=== PATIENT | male | born 1955 ===

== ENCOUNTER 2025-02-04 17:57 | Inpatient (IN) | payer MEDICARE, MEDICAID, SELFPAY ==
[2025-02-04 18:25] VITALS: BP 122/75; PULSE 42; RESP 18; TEMP 36.9; O2SAT 96
[2025-02-04 18:39] VITALS: BMI 31.2
--- NOTE | 2025-02-04 19:19 | PC.ADMIT ---
Ronaldo Arnold was admitted to on a CV for treatment of Bipolar Disorder and OCD from [facility]. He reports that prior to coming to the hospital, he was having lack of care for himself and his two birds at home due to his neuropathy. He reports he spends a large amount of time laying in bed from the pain and fear of falling, and it has taken an emotional toll on him. He reports having increased depression and anxiety, which is not a new symptom for him, to the point where he felt like he wanted to take his life. Upon admission, he reports feeling safe and hopeful that he is going to be helped and feel better. His thought process is clear and linear, he makes appropriate eye contact and is A&O x 3. His mood is depressed and his affect is congruent. He denies SI/HI/AVH, he reports feeling comfortable coming to staff if these occur. He reports having a history of asthma, type 2 diabetes that is under good control, and obstructive sleep apnea that he uses a CPAP for. He denies any disturbance to sleep or appetite and denies recent weight loss. He denies substance use and tox screen was negative. He reports pain due to neuropathy but otherwise no other pain. He reports having a back surgery in Sep. He reports his goal of admission to feel better and less depression. He was placed on 15 minute checks for safety.
[2025-02-04 19:34] VITALS: BP 145/70; PULSE 59; RESP 18; TEMP 36.4; O2SAT 99
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
[2025-02-04] MEDS: Divalproex Sodium 250 MG TABLET.DR PO (20:11)
[2025-02-04] MEDS: hydrOXYzine HCL 25 MG TABLET PO (20:11)
[2025-02-04] MEDS: Prazosin HCL 1 MG CAPSULE PO (20:11)
[2025-02-04] MEDS: Meclizine HCl 12.5 MG TABLET PO (20:23)
[2025-02-04] MEDS: Acetaminophen 325 MG TABLET 650 MG PO (23:40)
[2025-02-04] MEDS: traZODone HCL 50 MG TABLET PO (23:40)
[2025-02-05 07:53] VITALS: BP 123/61; PULSE 40; RESP 14; TEMP 36.6; O2SAT 100
[2025-02-05 08:41] LABS: Estimated Average Glucose 111 mg/dL; Hemoglobin A1C 140.9174 umol/L; Hemoglobin A1c % 5.5 % (<6.0); Total Hemoglobin (HGBA1C) 3812.5434 umol/L
[2025-02-05] MEDS: Ezetimibe 10 MG TABLET PO (08:44)
[2025-02-05 08:53] LABS: Cholesterol 171 mg/dL (<200); HDL Cholesterol 39 mg/dL (>40); LDL Cholesterol Calculated 103 mg/dL (<100); Triglycerides 149 mg/dL (<150)
[2025-02-05 09:11] LABS: Free T4 (Free Thyroxine) 0.96 ng/dL (0.71-1.85); Thyroid Stimulating Hormone 1.34 uIU/mL (0.32-4.0)
[2025-02-05] MEDS: Acetaminophen 325 MG TABLET 650 MG PO ×2 (09:19→22:25)
[2025-02-05 09:20] LABS: Folate 13.6 ng/mL (> or = 4.0); Vitamin B12 350 pg/mL (200-900)
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
[2025-02-05] MEDS: Meclizine HCl 12.5 MG TABLET PO ×2 (11:00→14:25)
[2025-02-05] MEDS: Gabapentin 300 MG CAPSULE PO ×2 (14:26→20:42)
[2025-02-05 20:00] VITALS: BP 136/62; PULSE 44; RESP 16; TEMP 36.4; O2SAT 99
[2025-02-05] MEDS: hydrOXYzine HCL 25 MG TABLET PO (20:42)
[2025-02-05] MEDS: Divalproex Sodium 250 MG TABLET.DR PO (20:42)
[2025-02-05] MEDS: traZODone HCL 50 MG TABLET PO ×2 (20:42→22:25)
[2025-02-05] MEDS: Prazosin HCL 1 MG CAPSULE 2 MG PO (20:42)
[2025-02-06] MEDS: Acetaminophen 325 MG TABLET 650 MG PO (03:51)
[2025-02-06 07:33] VITALS: BP 123/60; PULSE 38; RESP 14; TEMP 36.4; O2SAT 95
[2025-02-06 08:51] VITALS: PULSE 44
[2025-02-06] MEDS: Gabapentin 300 MG CAPSULE PO (08:52)
[2025-02-06] MEDS: Ezetimibe 10 MG TABLET PO (08:52)
[2025-02-06] MEDS: buPROPion HCl XL 150 MG TAB.ER.24H PO (08:52)
[2025-02-06] MEDS: Gabapentin 300 MG CAPSULE 600 MG PO ×2 (15:24→21:10)
[2025-02-06] MEDS: Ibuprofen 600 MG TABLET PO ×2 (15:30→21:32)
--- NOTE | 2025-02-06 19:51 | P.PNPSI_ITS ---
Subjective Subjective Date of Service: 02/06/25 Reason For Visit: F31.9, F42.2 Interim History: reports he is feeling improved, pacing the ac. agreeable to increase glenn and prazosin for neuropathic pain and nightmares/insomnia and to DC trazodone out of concern for exacerbation of nightmares. will try remeron PRN. per staff dep/anx so-so. slept 7 hours. taking meds. bored. reading bible. Mental Status Exam Mental Status Exam Narrative: adequately dressed and groomed. cooperative. no PMA/PMR. speech nml rate, amount, loudness, tone, latency. thoughts linear and logical. affect full range, normo-intense, non-labile. mood improved. no SI/SIBI/HI/AVH expressed. Diagnostics Vital Signs (24Hr): Vital Signs - 24 hr 02/05/25 20:00 02/06/25 07:33 02/06/25 08:51 Temperature 97.5 F 97.5 F Pulse Rate 44 L 38 L 44 L Respiratory Rate 16 14 Blood Pressure 136/62 123/60 Pulse Oximetry 99 95 Oxygen Delivery Method Room Air BMI result Body Mass Index 31.2 Labs Labs: Laboratory Results - last 48 hr 02/05/25 08:10 Estimat Average Glucose 111 Hemoglobin A1c % 5.5 Triglycerides 149 Cholesterol 171 LDL Cholesterol, Calc 103 H HDL Cholesterol 39 L Vitamin B12 350 Folate 13.6 TSH 1.34 Free T4 0.96 Medications Medications Current Medications Al Hydroxide/Mg Hydroxide (Magnesium Hydrox/Alum Hydrox 30 Ml Oral.Susp) 30 ml PO Q6H PRN PRN Reason: Heartburn/Nausea Bupropion HCl (Bupropion Hcl Xl 150 Mg Tab.Er.24h) 150 mg PO DAILY [facility] Last Admin: 02/06/25 08:52 Dose: 150 mg Divalproex Sodium (Divalproex Sodium 250 Mg Tablet.) 250 mg PO BEDTIME [facility] Last Admin: 02/05/25 20:42 Dose: 250 mg Ezetimibe (Ezetimibe 10 Mg Tablet) 10 mg PO DAILY [facility] Last Admin: 02/06/25 08:52 Dose: 10 mg Gabapentin (Gabapentin 300 Mg Capsule) 600 mg PO TID [facility] Last Admin: 02/06/25 15:24 Dose: 600 mg Hydroxyzine HCl (Hydroxyzine Hcl 25 Mg Tablet) 25 mg PO Q6H PRN PRN Reason: mild anxiety Last Admin: 02/05/25 20:42 Dose: 25 mg Ibuprofen (Ibuprofen 600 Mg Tablet) 600 mg PO Q6H PRN PRN Reason: pain (pain scale 1-10) Last Admin: 02/06/25 15:30 Dose: 600 mg Magnesium Hydroxide (Milk Of Magnesia 30 Ml Oral.Susp) 30 ml PO DAILY PRN PRN Reason: Constipation Meclizine HCl (Meclizine Hcl 12.5 Mg Tablet) 12.5 mg PO TID PRN PRN Reason: motion sickness Last Admin: 02/05/25 14:25 Dose: 12.5 mg Mirtazapine (Mirtazapine 15 Mg Tablet) 15 mg PO BEDTIME PRN PRN Reason: insomnia Nicotine Polacrilex (Nicotine Polacrilex 2 Mg Gum) 4 mg BUCCAL Q2H PRN PRN Reason: Nicotine Cravings Prazosin HCl (Prazosin Hcl 1 Mg Capsule) 3 mg PO BEDTIME JP; Protocol Allergies Allergies Allergy/AdvReac Type Severity Reaction Status Date / Time amoxicillin Allergy Unknown Verified 02/04/25 18:03 latex Allergy Unknown Verified 02/04/25 18:03 mold Allergy Unknown Verified 02/04/25 18:03 sulfamethoxazole Allergy Unknown Verified 02/04/25 18:03 [From Bactrim] trimethoprim [From Bactrim] Allergy Unknown Verified 02/04/25 18:03 Assessment & Plan Assessment & Plan (1) Chronic post-traumatic stress disorder (PTSD): Status: Acute Code(s): F43.12 - Post-traumatic stress disorder, chronic (2) Bipolar disorder: Status: Acute Code(s): F31.9 - Bipolar disorder, unspecified (3) Mild cognitive impairment: Status: Acute Code(s): G31.84 - Mild cognitive impairment of uncertain or unknown etiology (4) Diabetes mellitus: Status: Acute Code(s): E11.9 - Type 2 diabetes mellitus without complications Plan 1) nightmares/insomnia - increase prazosin to 2 mg QHS as of 02/05, 3 mg as of 02/06. DC trazodone for risk of exacerbation of nightmares, trial of remeron instead. 2) neuropathy - increase gabapentin to 300 TID as of 02/05, 600 TID as of 02/06. 3) depression - add wellbutrin XL 150 mg daily as of 02/06. 4) mood stabilization - continue VPA 250 mg at HS, increase later in hospitalization or outpt. otherwise continue outpt regimen. dispo planning. Reason for continued inpatient stay Substantial Risk for: harm to self, inability to function and rapid decom pensation Time Spent With Patient Time: Total time managing care of this patient today ____ minutes.
[2025-02-06 20:00] VITALS: BP 123/58; PULSE 41; RESP 15; TEMP 36.4; O2SAT 100
[2025-02-06] MEDS: Prazosin HCL 1 MG CAPSULE 3 MG PO (21:09)
[2025-02-06] MEDS: Divalproex Sodium 250 MG TABLET.DR PO (21:09)
[2025-02-06] MEDS: Mirtazapine 15 MG TABLET PO (21:32)
[2025-02-07 07:40] VITALS: BP 122/64; PULSE 40; TEMP 36.9; O2SAT 96
[2025-02-07] MEDS: Gabapentin 300 MG CAPSULE 600 MG PO ×3 (08:57→21:47)
[2025-02-07] MEDS: buPROPion HCl XL 150 MG TAB.ER.24H PO (08:57)
[2025-02-07] MEDS: Ezetimibe 10 MG TABLET PO (08:57)
--- NOTE | 2025-02-07 12:14 | HO.PSYCHPN ---
Subjective Subjective Date of Service: 02/07/25 Reason For Visit: F31.9, F42.2 Interim History: calm, cooperative, pleasant. feeling much better mood-green, slept VERY well last night and happy about it. vivid dreams, but no nightmares. agreeable to continue current mgmt and decide tomorrow whether to increase wellbutrin to 300 on or not. per staff, dep 5 anx 4. visible. taking meds. broad affect. slept 6 hours. Mental Status Exam Mental Status Exam Narrative: adequately dressed and groomed. cooperative. no PMA/PMR. speech nml rate, amount, loudness, tone, latency. thoughts linear and logical. affect full range, normo-intense, non-labile. mood improved. no SI/SIBI/HI/AVH expressed. Diagnostics Vital Signs (24Hr): Vital Signs - 24 hr 02/06/25 20:00 02/07/25 07:40 Temperature 97.5 F 98.5 F Pulse Rate 41 L 40 L Respiratory Rate 15 Blood Pressure 123/58 L 122/64 Pulse Oximetry 100 96 Oxygen Delivery Method Room Air Room Air BMI result Body Mass Index 31.2 Medications Medications Current Medications Al Hydroxide/Mg Hydroxide (Magnesium Hydrox/Alum Hydrox 30 Ml Oral.Susp) 30 ml PO Q6H PRN PRN Reason: Heartburn/Nausea Bupropion HCl (Bupropion Hcl Xl 150 Mg Tab.Er.24h) 150 mg PO DAILY REPLACED BY [facility] Last Admin: 02/07/25 08:57 Dose: 150 mg Divalproex Sodium (Divalproex Sodium 250 Mg Tablet.) 250 mg PO BEDTIME REPLACED BY [facility] Last Admin: 02/06/25 21:09 Dose: 250 mg Ezetimibe (Ezetimibe 10 Mg Tablet) 10 mg PO DAILY REPLACED BY [facility] Last Admin: 02/07/25 08:57 Dose: 10 mg Gabapentin (Gabapentin 300 Mg Capsule) 600 mg PO TID REPLACED BY [facility] Last Admin: 02/07/25 08:57 Dose: 600 mg Hydroxyzine HCl (Hydroxyzine Hcl 25 Mg Tablet) 25 mg PO Q6H PRN PRN Reason: mild anxiety Last Admin: 02/05/25 20:42 Dose: 25 mg Ibuprofen (Ibuprofen 600 Mg Tablet) 600 mg PO Q6H PRN PRN Reason: pain (pain scale 1-10) Last Admin: 02/06/25 21:32 Dose: 600 mg Ibuprofen (Ibuprofen 600 Mg Tablet) 600 mg PO BEDTIME JP Magnesium Hydroxide (Milk Of Magnesia 30 Ml Oral.Susp) 30 ml PO DAILY PRN PRN Reason: Constipation Meclizine HCl (Meclizine Hcl 12.5 Mg Tablet) 12.5 mg PO TID PRN PRN Reason: motion sickness Last Admin: 02/05/25 14:25 Dose: 12.5 mg Mirtazapine (Mirtazapine 15 Mg Tablet) 15 mg PO BEDTIME PRN PRN Reason: insomnia Last Admin: 02/06/25 21:32 Dose: 15 mg Mirtazapine (Mirtazapine 15 Mg Tablet) 15 mg PO BEDTIME JP Nicotine Polacrilex (Nicotine Polacrilex 2 Mg Gum) 4 mg BUCCAL Q2H PRN PRN Reason: Nicotine Cravings Prazosin HCl (Prazosin Hcl 1 Mg Capsule) 3 mg PO BEDTIME JP; Protocol Last Admin: 02/06/25 21:09 Dose: 3 mg Allergies Allergies Allergy/AdvReac Type Severity Reaction Status Date / Time amoxicillin Allergy Unknown Verified 02/04/25 18:03 latex Allergy Unknown Verified 02/04/25 18:03 mold Allergy Unknown Verified 02/04/25 18:03 sulfamethoxazole Allergy Unknown Verified 02/04/25 18:03 [From Bactrim] trimethoprim [From Bactrim] Allergy Unknown Verified 02/04/25 18:03 Assessment & Plan Assessment & Plan (1) Chronic post-traumatic stress disorder (PTSD): Status: Acute Code(s): F43.12 - Post-traumatic stress disorder, chronic (2) Bipolar disorder: Status: Acute Code(s): F31.9 - Bipolar disorder, unspecified (3) Mild cognitive impairment: Status: Acute Code(s): G31.84 - Mild cognitive impairment of uncertain or unknown etiology (4) Diabetes mellitus: Status: Acute Code(s): E11.9 - Type 2 diabetes mellitus without complications Plan 02/06: 1) nightmares/insomnia - increase prazosin to 2 mg QHS as of 02/05, 3 mg as of 02/06. DC trazodone for risk of exacerbation of nightmares, trial of remeron instead. 2) neuropathy - increase gabapentin to 300 TID as of 02/05, 600 TID as of 02/06. 3) depression - add wellbutrin XL 150 mg daily as of 02/06. 4) mood stabilization - continue VPA 250 mg at HS, increase later in hospitalization or outpt. otherwise continue outpt regimen. dispo planning. 02/07: 1) nightmares/insomnia - increased prazosin to 2 mg QHS as of 02/05, 3 mg as of 02/06. DCed trazodone for risk of exacerbation of nightmares, trial of remeron instead. remeron effective, remeron 15 mg QHS scheduled as of 02/07. 2) neuropathy - increase gabapentin to 300 TID as of 02/05, 600 TID as of 02/06. some dizziness 02/06. continue current mgmt. 3) depression - added wellbutrin XL 150 mg daily as of 02/06. 02/08 will be third day at 150 mg daily, T/C increasing to 300 as of 02/09. 4) mood stabilization - continue VPA 250 mg at HS, increase later in hospitalization or outpt. otherwise continue outpt regimen. dispo planning. Reason for continued inpatient stay Substantial Risk for: harm to self, inability to function and rapid decompensation Time Spent With Patient Time: Total time managing care of this patient today __25__ minutes.
[2025-02-07 19:31] VITALS: BP 154/65; PULSE 42; RESP 20; TEMP 36.8; O2SAT 99
[2025-02-07 21:44] VITALS: BP 141/67; PULSE 42; RESP 20; O2SAT 100
[2025-02-07] MEDS: Prazosin HCL 1 MG CAPSULE 3 MG PO (21:46)
[2025-02-07] MEDS: Ibuprofen 600 MG TABLET PO (21:46)
[2025-02-07] MEDS: Divalproex Sodium 250 MG TABLET.DR PO (21:47)
[2025-02-07] MEDS: Mirtazapine 15 MG TABLET PO (21:47)
[2025-02-08] MEDS: Ibuprofen 600 MG TABLET PO ×3 (03:14→21:28)
[2025-02-08 07:52] VITALS: BP 134/67; PULSE 40; RESP 18; TEMP 36.4; O2SAT 96
[2025-02-08] MEDS: Gabapentin 300 MG CAPSULE 600 MG PO ×3 (08:53→21:24)
[2025-02-08] MEDS: buPROPion HCl XL 150 MG TAB.ER.24H PO (08:53)
[2025-02-08] MEDS: Ezetimibe 10 MG TABLET PO (08:53)
--- NOTE | 2025-02-08 10:02 | P.PNPSI_ITS ---
Subjective Subjective Date of Service: 02/08/25 Reason For Visit: F31.9, F42.2 Interim History: Active on unit. Pt reports feeling anxious and depressed today; pt stated, I feel the opposite of yesterday. It's nice to talk to people because I feel lonely in my apartment . Pt reports he would like to go to [employer], which he states is a clubhouse ;social and human services assistant aware. Pt reports poor sleep last night d/t nightmares. Medication Compliance: Yes Side effects from medications: No Attending Groups: Yes Mental Status Exam Mental Status Exam Patient Appearance: Well Grooomed Patient Orientation: Person, Place, Time and Situation Level of Consciousness: Awake and Alert Patient Behavior: Appropriate, Cooperative and Good Eye Contact Mood Description: Depressed and Anxious Affect Description: Blunted Ability to Follow Directions: Good Speech Pattern: Clear and Appropriate Memory Description: Intact Hallucinations: None Delusions: Not Present Thought Process: Intact and Goal Oriented Thought Content: positive for Intact Diagnostics Vital Signs (24Hr): Vital Signs - 24 hr 02/07/25 19:31 02/07/25 21:44 02/08/25 07:52 Temperature 98.3 F 97.6 F Pulse Rate 42 L 42 L 40 L Respiratory Rate 20 20 18 Blood Pressure 154/65 H 141/67 H 134/67 Pulse Oximetry 99 100 96 Oxygen Delivery Method Room Air Room Air Room Air BMI result Body Mass Index 31.2 Medications Medications Current Medications Al Hydroxide/Mg Hydroxide (Magnesium Hydrox/Alum Hydrox 30 Ml Oral.Susp) 30 ml PO Q6H PRN PRN Reason: Heartburn/Nausea Bupropion HCl (Bupropion Hcl Xl 150 Mg Tab.Er.24h) 150 mg PO DAILY [facility] Last Admin: 02/08/25 08:53 Dose: 150 mg Divalproex Sodium (Divalproex Sodium 250 Mg Tablet.Dr) 250 mg PO BEDTIME [facility] Last Admin: 02/07/25 21:47 Dose: 250 mg Ezetimibe (Ezetimibe 10 Mg Tablet) 10 mg PO DAILY [facility] Last Admin: 02/08/25 08:53 Dose: 10 mg Gabapentin (Gabapentin 300 Mg Capsule) 600 mg PO TID [facility] Last Admin: 02/08/25 08:53 Dose: 600 mg Hydroxyzine HCl (Hydroxyzine Hcl 25 Mg Tablet) 25 mg PO Q6H PRN PRN Reason: mild anxiety Last Admin: 02/05/25 20:42 Dose: 25 mg Ibuprofen (Ibuprofen 600 Mg Tablet) 600 mg PO Q6H PRN PRN Reason: pain (pain scale 1-10) Last Admin: 02/08/25 09:05 Dose: 600 mg Ibuprofen (Ibuprofen 600 Mg Tablet) 600 mg PO BEDTIME [facility] Last Admin: 02/07/25 21:46 Dose: 600 mg Magnesium Hydroxide (Milk Of Magnesia 30 Ml Oral.Susp) 30 ml PO DAILY PRN PRN Reason: Constipation Meclizine HCl (Meclizine Hcl 12.5 Mg Tablet) 12.5 mg PO TID PRN PRN Reason: motion sickness Last Admin: 02/05/25 14:25 Dose: 12.5 mg Mirtazapine (Mirtazapine 15 Mg Tablet) 15 mg PO BEDTIME PRN PRN Reason: insomnia Last Admin: 02/06/25 21:32 Dose: 15 mg Mirtazapine (Mirtazapine 15 Mg Tablet) 15 mg PO BEDTIME [facility] Last Admin: 02/07/25 21:47 Dose: 15 mg Nicotine Polacrilex (Nicotine Polacrilex 2 Mg Gum) 4 mg BUCCAL Q2H PRN PRN Reason: Nicotine Cravings Prazosin HCl (Prazosin Hcl 1 Mg Capsule) 3 mg PO BEDTIME [facility]; Protocol Last Admin: 02/07/25 21:46 Dose: 3 mg Allergies Allergies Allergy/AdvReac Type Severity Reaction Status Date / Time amoxicillin Allergy Unknown Verified 02/04/25 18:03 latex Allergy Unknown Verified 02/04/25 18:03 mold Allergy Unknown Verified 02/04/25 18:03 sulfamethoxazole Allergy Unknown Verified 02/04/25 18:03 [From Bactrim] trimethoprim [From Bactrim] Allergy Unknown Verified 02/04/25 18:03 Assessment & Plan Assessment & Plan (1) Chronic post-traumatic stress disorder (PTSD): Status: Acute Code(s): F43.12 - Post-traumatic stress disorder, chronic (2) Bipolar disorder: Status: Acute Code(s): F31.9 - Bipolar disorder, unspecified (3) Mild cognitive impairment: Status: Acute Code(s): G31.84 - Mild cognitive impairment of uncertain or unknown etiology (4) Diabetes mellitus: Status: Acute Code(s): E11.9 - Type 2 diabetes mellitus without complications Plan 02/06: 1) nightmares/insomnia - increase prazosin to 2 mg QHS as of 02/05, 3 mg as of 02/06. DC trazodone for risk of exacerbation of nightmares, trial of remeron instead. 2) neuropathy - increase gabapentin to 300 TID as of 02/05, 600 TID as of 02/06. 3) depression - add wellbutrin XL 150 mg daily as of 02/06. 4) mood stabilization - continue VPA 250 mg at HS, increase later in hospitalization or outpt. otherwise continue outpt regimen. dispo planning. 02/07: 1) nightmares/insomnia - increased prazosin to 2 mg QHS as of 02/05, 3 mg as of 02/06. DCed trazodone for risk of exacerbation of nightmares, trial of remeron instead. remeron effective, remeron 15 mg QHS scheduled as of 02/07. 2) neuropathy - increase gabapentin to 300 TID as of 02/05, 600 TID as of 02/06. some dizziness 02/06. continue current mgmt. 3) depression - added wellbutrin XL 150 mg daily as of 02/06. 02/08 will be third day at 150 mg daily, T/C increasing to 300 as of 02/09. 4) mood stabilization - continue VPA 250 mg at HS, increase later in hospitalization or outpt. otherwise continue outpt regimen. dispo planning. 02/08: anxious and depressed today; pt stated, I feel the opposite of yesterday. It's nice to talk to people because I feel lonely in my apartment . Pt reports he would like to go to [employer], which he states is a clubhouse ;social and human services assistant aware. poor sleep last night d/t nightmares. Continue tx plan. Patient educated on: diagnosis, medication risk/benefits and therapeutic strategies Reason for continued inpatient stay Substantial Risk for: med/psych decompensation Time Spent With Patient Time: Total time managing care of this patient today _20___ minutes.
[2025-02-08 21:20] VITALS: BP 118/58; PULSE 44; RESP 16; TEMP 36.4; O2SAT 97
[2025-02-08] MEDS: Prazosin HCL 1 MG CAPSULE 3 MG PO (21:27)
[2025-02-08] MEDS: Divalproex Sodium 250 MG TABLET.DR PO (21:28)
[2025-02-08] MEDS: Mirtazapine 15 MG TABLET PO (21:28)
[2025-02-09 07:53] VITALS: BP 89/46; PULSE 43; RESP 16; TEMP 36.8; O2SAT 94
[2025-02-09] MEDS: Ezetimibe 10 MG TABLET PO (08:30)
[2025-02-09] MEDS: Gabapentin 300 MG CAPSULE 600 MG PO (08:30)
[2025-02-09] MEDS: buPROPion HCl XL 150 MG TAB.ER.24H PO (08:30)
[2025-02-09] MEDS: Gabapentin 300 MG CAPSULE 900 MG PO ×2 (15:12→20:45)
--- NOTE | 2025-02-09 16:14 | P.PNPSI_ITS ---
Subjective Subjective Date of Service: 02/09/25 Reason For Visit: F31.9, F42.2 Interim History: calm, cooperative, feeling well today. acknowledges neuropathic pain yesterday and nightmares, however says last night no nightmares and today pain better. mood improved very substantially from admission. interested in increasing glenn for pain and wellbutrin for mood. asking for friday discharge. per staff, slept 8 hours. CPAP. +dep/anx. taking meds. Mental Status Exam Mental Status Exam Narrative: adequately dressed and groomed. cooperative. no PMA/PMR. speech nml rate, amount, loudness, tone, latency. thoughts linear and logical. affect full range, normo-intense, non-labile. mood improved. no SI/SIBI/HI/AVH expressed. Diagnostics Vital Signs (24Hr): Vital Signs - 24 hr 02/08/25 21:20 02/09/25 07:53 Temperature 97.6 F 98.3 F Pulse Rate 44 L 43 L Respiratory Rate 16 16 Blood Pressure 118/58 L 89/46 L Pulse Oximetry 97 94 Oxygen Delivery Method Room Air Room Air BMI result Body Mass Index 31.2 Medications Medications Current Medications Al Hydroxide/Mg Hydroxide (Magnesium Hydrox/Alum Hydrox 30 Ml Oral.Susp) 30 ml PO Q6H PRN PRN Reason: Heartburn/Nausea Bupropion HCl (Bupropion Hcl Xl 300 Mg Tab.Er.24h) 300 mg PO DAILY [facility] Divalproex Sodium (Divalproex Sodium 250 Mg Tablet.) 250 mg PO BEDTIME [facility] Last Admin: 02/08/25 21:28 Dose: 250 mg Ezetimibe (Ezetimibe 10 Mg Tablet) 10 mg PO DAILY [facility] Last Admin: 02/09/25 08:30 Dose: 10 mg Gabapentin (Gabapentin 300 Mg Capsule) 900 mg PO TID [facility] Last Admin: 02/09/25 15:12 Dose: 900 mg Hydroxyzine HCl (Hydroxyzine Hcl 25 Mg Tablet) 25 mg PO Q6H PRN PRN Reason: mild anxiety Last Admin: 02/05/25 20:42 Dose: 25 mg Ibuprofen (Ibuprofen 600 Mg Tablet) 600 mg PO Q6H PRN PRN Reason: pain (pain scale 1-10) Last Admin: 02/08/25 09:05 Dose: 600 mg Ibuprofen (Ibuprofen 600 Mg Tablet) 600 mg PO BEDTIME [facility] Last Admin: 02/08/25 21:28 Dose: 600 mg Magnesium Hydroxide (Milk Of Magnesia 30 Ml Oral.Susp) 30 ml PO DAILY PRN PRN Reason: Constipation Meclizine HCl (Meclizine Hcl 12.5 Mg Tablet) 12.5 mg PO TID PRN PRN Reason: motion sickness Last Admin: 02/05/25 14:25 Dose: 12.5 mg Mirtazapine (Mirtazapine 15 Mg Tablet) 15 mg PO BEDTIME PRN PRN Reason: insomnia Last Admin: 02/06/25 21:32 Dose: 15 mg Mirtazapine (Mirtazapine 15 Mg Tablet) 15 mg PO BEDTIME [facility] Last Admin: 02/08/25 21:28 Dose: 15 mg Nicotine Polacrilex (Nicotine Polacrilex 2 Mg Gum) 4 mg BUCCAL Q2H PRN PRN Reason: Nicotine Cravings Prazosin HCl (Prazosin Hcl 1 Mg Capsule) 3 mg PO BEDTIME [facility]; Protocol Last Admin: 02/08/25 21:27 Dose: 3 mg Allergies Allergies Allergy/AdvReac Type Severity Reaction Status Date / Time amoxicillin Allergy Unknown Verified 02/04/25 18:03 latex Allergy Unknown Verified 02/04/25 18:03 mold Allergy Unknown Verified 02/04/25 18:03 sulfamethoxazole Allergy Unknown Verified 02/04/25 18:03 [From Bactrim] trimethoprim [From Bactrim] Allergy Unknown Verified 02/04/25 18:03 Assessment & Plan Assessment & Plan (1) Chronic post-traumatic stress disorder (PTSD): Status: Acute Code(s): F43.12 - Post-traumatic stress disorder, chronic (2) Bipolar disorder: Status: Acute Code(s): F31.9 - Bipolar disorder, unspecified (3) Mild cognitive impairment: Status: Acute Code(s): G31.84 - Mild cognitive impairment of uncertain or unknown etiology (4) Diabetes mellitus: Status: Acute Code(s): E11.9 - Type 2 diabetes mellitus without complications Plan 02/06: 1) nightmares/insomnia - increase prazosin to 2 mg QHS as of 02/05, 3 mg as of 02/06. DC trazodone for risk of exacerbation of nightmares, trial of remeron instead. 2) neuropathy - increase gabapentin to 300 TID as of 02/05, 600 TID as of 02/06. 3) depression - add wellbutrin XL 150 mg daily as of 02/06. 4) mood stabilization - continue VPA 250 mg at HS, increase later in hospitalization or outpt. otherwise continue outpt regimen. dispo planning. 02/07: 1) nightmares/insomnia - increased prazosin to 2 mg QHS as of 02/05, 3 mg as of 02/06. DCed trazodone for risk of exacerbation of nightmares, trial of remeron instead. remeron effective, remeron 15 mg QHS scheduled as of 02/07. 2) neuropathy - increase gabapentin to 300 TID as of 02/05, 600 TID as of 02/06. some dizziness 02/06. continue current mgmt. 3) depression - added wellbutrin XL 150 mg daily as of 02/06. 02/08 will be third day at 150 mg daily, T/C increasing to 300 as of 02/09. 4) mood stabilization - continue VPA 250 mg at HS, increase later in hospitalization or outpt. otherwise continue outpt regimen. dispo planning. 02/08: anxious and depressed today; pt stated, I feel the opposite of yesterday. It's nice to talk to people because I feel lonely in my apartment . Pt reports he would like to go to [employer], which he states is a clubhouse ;manager social responsibility aware. poor sleep last night d/t nightmares. Continue tx plan. 02/09: better mood today, pain better, no nightmares last night. nevertheless, in light of poor day yesterday, amenable to increasing gabapentin to 900 TID and wellbutrin XL to 300 mg daily as of tomorrow morning. planning to discharge friday. Reason for continued inpatient stay Substantial Risk for: inability to function and rapid decompensation Time Spent With Patient Time: Total time managing care of this patient today _25___ minutes.
[2025-02-09 19:58] VITALS: BP 137/64; PULSE 46; RESP 16; TEMP 36.6; O2SAT 99
[2025-02-09] MEDS: Prazosin HCL 1 MG CAPSULE 3 MG PO (20:46)
[2025-02-09] MEDS: Divalproex Sodium 250 MG TABLET.DR PO (20:46)
[2025-02-09] MEDS: Ibuprofen 600 MG TABLET PO (20:46)
[2025-02-09] MEDS: Mirtazapine 15 MG TABLET PO (20:46)
[2025-02-10] MEDS: Ibuprofen 600 MG TABLET PO ×2 (05:41→21:00)
[2025-02-10 07:00] VITALS: BMI 32.4
[2025-02-10 08:00] VITALS: BP 110/57; PULSE 41; RESP 14; TEMP 36.4; O2SAT 96
[2025-02-10] MEDS: Ezetimibe 10 MG TABLET PO (08:03)
[2025-02-10] MEDS: Gabapentin 300 MG CAPSULE 900 MG PO ×3 (08:03→21:00)
[2025-02-10] MEDS: buPROPion HCl XL 300 MG TAB.ER.24H PO (08:03)
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
[2025-02-10 19:45] VITALS: BP 142/67; PULSE 40; RESP 16; TEMP 36.4; O2SAT 99
[2025-02-10 20:59] VITALS: BP 147/67
[2025-02-10] MEDS: Prazosin HCL 1 MG CAPSULE 3 MG PO (20:59)
[2025-02-10] MEDS: Divalproex Sodium 250 MG TABLET.DR PO (21:00)
[2025-02-10] MEDS: Mirtazapine 15 MG TABLET PO (21:00)
[2025-02-11 07:53] VITALS: BP 125/63; PULSE 53; RESP 16; TEMP 36.8; O2SAT 94
[2025-02-11] MEDS: buPROPion HCl XL 300 MG TAB.ER.24H PO (08:48)
[2025-02-11] MEDS: Gabapentin 300 MG CAPSULE 900 MG PO (08:48)
[2025-02-11] MEDS: Ezetimibe 10 MG TABLET PO (08:48)
== END 2025-02-11 10:52 | disposition home or self-care (01) | DRG 885 ==
PROVIDERS: Admitting Provider Registered Nurse; PCP Internal Medicine; Visit Provider Psychiatry & Neurology Psychiatry
DX: F31.9 Bipolar disorder, unspecified (principal); R45.851 Suicidal ideations; F43.12 Post-traumatic stress disorder, chronic; I95.1 Orthostatic hypotension; E78.5 Hyperlipidemia, unspecified; D35.2 Benign neoplasm of pituitary gland; E11.42 Type 2 diabetes mellitus with diabetic polyneuropathy; G31.84 Mild cognitive impairment of uncertain or unknown etiology; Z79.899 Other long term (current) drug therapy
CPT/HCPCS: 36415; 80061; 82607; 82746; 83036; 84439; 84443; 94660

== ENCOUNTER → 2025-02-04 17:57 | Outpatient (BNV) | payer MEDICARE, MEDICAID, SELFPAY | PROVIDERS: Admitting Provider Registered Nurse; PCP Internal Medicine; Visit Provider Psychiatry & Neurology Psychiatry | DX: F43.12 Post-traumatic stress disorder, chronic (principal); F31.9 Bipolar disorder, unspecified; G31.84 Mild cognitive impairment of uncertain or unknown etiology; E11.9 Type 2 diabetes mellitus without complications | CPT/HCPCS: 99231 ==

== ENCOUNTER → 2025-02-04 17:57 | Outpatient (BNV) | payer MEDICARE, MEDICAID, SELFPAY | PROVIDERS: Admitting Provider Registered Nurse; PCP Internal Medicine; Visit Provider Student in an Organized Health Care Education/Training Program | DX: Z00.8 Encounter for other general examination (principal) | CPT/HCPCS: 99222 ==